=== PATIENT | male | born 1975 | race Two or more races ===

== ENCOUNTER 2024-11-23 09:26 | Emergency (ER) | payer SELFPAY ==
[2024-11-23] MEDS ORDERED: Ketorolac Tromethamine 30 MG (1 mL) VIAL ONE (10:14)
[2024-11-23] MEDS ORDERED: cefTRIAXone (ROCEPHIN) 500 MG VIAL ONE (10:14)
[2024-11-23 11:37] LABS: HIV (1/2) Antibody/Antigen Non-Reactive (NonReactive); HIV 1/2 INDEX 0.10 S/CO (<1.00)
[2024-11-23 11:38] LABS: Syphilis Antibody Index 0.05 S/CO (<1.00 Non-Reactive)
[2024-11-23] MEDS ORDERED: diphenhydrAMINE 25 MG CAP ONE (11:52)
[2024-11-24 20:05] LABS: Chlam.trachomatis by PCR,Urine Not Detected (NotDetected); GC N.gonorrhoeae PCR,UrineVOID Not Detected (NotDetected)
== END 2024-11-23 14:04 | disposition home or self-care (01) ==
LOC: CSHERS 09:26
DX: N50.811 Right testicular pain (principal); N48.29 Other inflammatory disorders of penis; E11.9 Type 2 diabetes mellitus without complications; Z55.6 Problems related to health literacy
CPT/HCPCS: 36415; 76870; 86780; 87389; 87491; 87591; 93976; 96372; 99284; J0696; J1885